=== PATIENT | female | born 1995 | race Caucasian/White ===

== ENCOUNTER → 2017-07-03 10:04 | Outpatient (CLI) | payer BC, SELFPAY ==
--- NOTE | 2017-07-03 13:09 | XR_ITS ---
XR shoulder LT min 2V HISTORY: ITS.REASON: pain ORDERING PHYSICIAN: Maria T Cardoso PATIENT AGE: 21 years COMPARISON: FINDINGS: No fracture or dislocation. No lytic or blastic change. There is normal mineralization. The joint spaces are well-preserved. No significant degenerative/arthritic changes. No erosive changes evident. IMPRESSION: Negative, no acute finding
[2017-07-03 14:20] LABS: Basophils % 0.4 % (0.1-2.0); Eosinophils # 0.4 K/mm3 (0.0-0.4); Hematocrit 50.1 % (37.0-47.0); Hemoglobin 16.8 g/dL (12.2-16.2); Lymphocytes # 1.6 K/mm3 (0.7-4.5); Lymphocytes % 19.5 K/mm3 (10-50); Mean Corpuscular HGB Conc 33.5 g/dL (31.8-35.4); Mean Corpuscular Hemoglobin 28.8 pg (27.0-31.2); Mean Platelet Volume 9.5 fl (7.4-10.4); Monocytes # 0.3 K/mm3 (0.1-1.0); Monocytes % 3.7 % (1.7-9.3); Neutrophils # 5.9 K/mm3 (1.8-7.8); Neutrophils % 71.4 % (37.0-80.0); Platelet Count 199 K/mm3 (142-424); Red Blood Count 5.82 M/mm3 (4.20-5.40); Red Cell Distribution Width 13.6 % (11.5-17.5); White Blood Count 8.3 K/mm3 (4.5-13.0)
[2017-07-03 14:21] LABS: Alanine Aminotransferase 20 U/L (12-78); Albumin Level 4.4 gm/dL (3.4-5.0); Albumin/Globulin Ratio 1.4 (1.1-1.8); Alkaline Phosphatase 73 U/L (46-116); Aspartate Amino Transferase 14 U/L (15-37); Bilirubin,Total 0.7 mg/dL (0.2-1.0); Blood Urea Nitrogen 9 mg/dL (7-18); Calcium 9.6 mg/dL (8.5-10.1); Carbon Dioxide 27 mmol/L (21.0-32.0); Chloride 103 mmol/L (98-107); Chol/HDL Ratio 3.5 (1-3.5); Cholesterol 175 mg/dL (140-200); Creatinine,Serum 0.67 mg/dL (0.55-1.02); Estimated Glomerular Filt Rate 113 ml/min (>60); Free T4 (Free Thyroxine) 1.15 ng/dl (0.78-1.34); GFR (African American) 137 ML/MIN (>60); Globulin 3.1 gm/dl (1.3-3.2); Glucose 94 mg/dL (74-106); HDL Cholesterol 50 mg/dL (29-89); LDL Cholesterol 102 mg/dL (0-130); Sodium 141 mmol/L (136-145); Total Protein,Serum 7.5 gm/dL (6.4-8.2); Triglycerides 115 mg/dL (30-200); VLDL Cholesterol 23 mg/dL (0-40)
[2017-07-03 15:06] LABS: Hemoglobin A1C 4.4 % (0.0-7.0)
[2017-07-05 06:28] LABS: Vitamin D 25 Hydroxy 23.9 ng/mL (30.0-100.0)
== END ==
PROVIDERS: PCP Nurse Practitioner Family; Visit Provider Nurse Practitioner Family
DX: Z85.43 Personal history of malignant neoplasm of ovary (principal); R53.83 Other fatigue; M25.512 Pain in left shoulder
CPT/HCPCS: 73030; 80053; 80061; 82652; 83036; 84439; 84443; 85025

== ENCOUNTER → 2017-07-14 14:44 | Outpatient (CLI) | payer BC, SELFPAY ==
--- NOTE | 2017-07-14 14:47 | US_ITS ---
US breast RT complete INDICATION: Palpable abnormality right breast ORDERING PHYSICIAN: Maria T Cardoso PATIENT AGE: 21 years COMPARISON: None TECHNIQUE: Standard breast and axillary images FINDINGS: There is a 20 by 16 x 9 mm area of heterogeneous echogenicity with enhanced through transmission of sound involving the 9:00 region of the right breast. Margins are well-circumscribed without evidence of spiculation or abnormal vascularity. This is likely related to fibroadenoma. No other significant anomalies are evident. IMPRESSION: Well-circumscribed 2 x 1.6 x 0.9 cm nodule in the 9:00 region right breast probably related to fibroadenoma. BI-RADS Category: 3 Benign Finding Short Term Follow-up RECOMMENDED FOLLOW-UP: 6M - 6 MONTH FOLLOW-UP (A letter has been sent to the patient regarding results of the study.)
== END ==
PROVIDERS: Family Provider Family Medicine; PCP Nurse Practitioner Family; Visit Provider Nurse Practitioner Family
DX: N60.09 Solitary cyst of unspecified breast (principal)
CPT/HCPCS: 76641

== ENCOUNTER → 2017-08-07 10:42 | Outpatient (CLI) | payer BC, SELFPAY ==
--- NOTE | 2017-08-07 10:46 | XR_ITS ---
XR chest 2V HISTORY: ITS.REASON: cough ORDERING PHYSICIAN: Maria T Cardoso PATIENT AGE: 21 years COMPARISON: None FINDINGS: The cardiomediastinal silhouette and pulmonary vascularity are within normal limits. The lungs are clear without infiltrates, suspicious nodules, or pleural effusions. No acute bony abnormalities. IMPRESSION: Negative chest, no acute finding
== END ==
PROVIDERS: PCP Nurse Practitioner Family; Visit Provider Nurse Practitioner Family
DX: R05 Cough (principal)
CPT/HCPCS: 71046

== ENCOUNTER → 2017-09-09 10:19 | Outpatient (POV) | payer BC, SELFPAY | PROVIDERS: Visit Provider Pediatrics | DX: Z00.00 Encounter for general adult medical examination without abnormal findings (principal) ==

== ENCOUNTER 2017-09-10 13:00 | Outpatient (RCR) | payer BC, SELFPAY ==
--- NOTE | 2017-08-05 11:03 | HMH.OTOPEV ---
OT Inpatient Evaluation Rehab OT Outpatient Eval Start: 08/05/17 10:42 Freq: Status: Active Protocol: Document 08/05/17 10:43 RMARSHALL (Rec: 08/05/17 11:02 [id number] Electronically Signed By Héctor Burger OT 08/05/17 10:43 Outpatient Therapy Subjective History Subjective History Pt is a 21 year old female who is seen today for initial eval of the left shoulder. Pt reports in February, she was skateboarding when she fell off and landed on left shoulder. Pt had pain and decreased function in left shoulder immediately after the fall. Pt fell again in march landing on her left shoulder. Pt explains her pain has not improved and has continued to increase. Pt does demonstrate with slight decreased AROM and strength at left shoulder. Pt will continue to be seen in order to address these deficits. Chief Complaint Pain Symptom Type Ache Throb Sharp Dull Stabbing Burning Tingling Shooting Symptoms Relieved By Nothing Symptoms Aggravated By Physical Activity Lifting Prior Functional Limitations None Current Functional Limitations Reaching Lifting Housework Dressing Driving Sleeping Recreation Activity Symptom Description Intermittent Activity Dependent Level of pain today (0-10) 4 Pain scale - at its best (0-10) 1 Pain scale - at its worst (0-10) 10 Shoulder/Elbow Eval Shoulder Objective Measurements Shoulder ROM Right Shoulder Abduction Active Range of 162 degrees Motion (degrees) Shoulder Flexion Active Range of Motion 160 degrees (degrees) Query Text: Shoulder External Rotation Active Range 90 degrees of Motion (degrees) Shoulder Internal Rotation Active Range 85 degrees of Motion (degre
== END 2017-09-10 13:01 | disposition home or self-care (01) ==
LOC: OT 13:00
PROVIDERS: Family Provider Family Medicine; PCP Nurse Practitioner Family; Visit Provider Nurse Practitioner Family
DX: M25.512 Pain in left shoulder (principal)
CPT/HCPCS: 97014; 97033; 97110; 97166; G0283

== ENCOUNTER → 2017-09-23 12:37 | Outpatient (POV) | payer BC, SELFPAY | PROVIDERS: Visit Provider Pediatrics | DX: Z00.00 Encounter for general adult medical examination without abnormal findings (principal) ==

== ENCOUNTER → 2017-10-28 13:48 | Outpatient (POV) | payer BC, SELFPAY | PROVIDERS: Family Provider Family Medicine; Visit Provider Pediatrics | DX: Z00.00 Encounter for general adult medical examination without abnormal findings (principal) ==

== ENCOUNTER → 2017-10-28 13:48 | Outpatient (POV) | payer BC, SELFPAY | PROVIDERS: Family Provider Family Medicine | DX: Z00.00 Encounter for general adult medical examination without abnormal findings (principal) ==

== ENCOUNTER → 2017-11-11 11:41 | Outpatient (POV) | payer BC, SELFPAY | PROVIDERS: Family Provider Family Medicine; Visit Provider Pediatrics | DX: Z00.00 Encounter for general adult medical examination without abnormal findings (principal) ==

== ENCOUNTER → 2017-11-11 11:41 | Outpatient (POV) | payer BC, SELFPAY | DX: Z00.00 Encounter for general adult medical examination without abnormal findings (principal) ==

== ENCOUNTER → 2017-11-25 11:26 | Outpatient (POV) | payer BC, SELFPAY | PROVIDERS: Family Provider Family Medicine | DX: Z00.00 Encounter for general adult medical examination without abnormal findings (principal) ==

== ENCOUNTER → 2017-12-09 12:40 | Outpatient (POV) | payer BC, SELFPAY | PROVIDERS: Visit Provider Pediatrics | DX: Z00.00 Encounter for general adult medical examination without abnormal findings (principal) ==

== ENCOUNTER → 2017-12-30 11:22 | Outpatient (POV) | payer BC, SELFPAY | PROVIDERS: Visit Provider Pediatrics | DX: Z00.00 Encounter for general adult medical examination without abnormal findings (principal) ==

== ENCOUNTER → 2018-01-13 13:11 | Outpatient (POV) | payer BC, SELFPAY | PROVIDERS: Visit Provider Pediatrics | DX: Z00.00 Encounter for general adult medical examination without abnormal findings (principal) ==

== ENCOUNTER → 2018-02-10 12:36 | Outpatient (POV) | payer BC, SELFPAY | PROVIDERS: Visit Provider Pediatrics | DX: Z00.00 Encounter for general adult medical examination without abnormal findings (principal) ==

== ENCOUNTER → 2018-02-10 13:56 | Outpatient (POV) | payer BC, SELFPAY | PROVIDERS: Visit Provider Internal Medicine | DX: Z00.00 Encounter for general adult medical examination without abnormal findings (principal) ==

== ENCOUNTER → 2018-03-10 10:44 | Outpatient (POV) | payer BC, SELFPAY | PROVIDERS: Visit Provider Pediatrics | DX: Z00.00 Encounter for general adult medical examination without abnormal findings (principal) ==

== ENCOUNTER → 2018-04-14 13:04 | Outpatient (POV) | payer BC, SELFPAY | PROVIDERS: Visit Provider Pediatrics | DX: Z00.00 Encounter for general adult medical examination without abnormal findings (principal) ==

== ENCOUNTER → 2018-04-28 11:19 | Outpatient (POV) | payer BC, SELFPAY | PROVIDERS: Visit Provider Pediatrics | DX: Z00.00 Encounter for general adult medical examination without abnormal findings (principal) ==

== ENCOUNTER → 2018-05-12 11:45 | Outpatient (POV) | payer BC, SELFPAY | PROVIDERS: Visit Provider Pediatrics | DX: Z00.00 Encounter for general adult medical examination without abnormal findings (principal) ==

== ENCOUNTER → 2018-06-09 11:16 | Outpatient (POV) | payer BC, SELFPAY | PROVIDERS: Visit Provider Pediatrics | DX: Z00.00 Encounter for general adult medical examination without abnormal findings (principal) ==

== ENCOUNTER → 2018-06-09 11:17 | Outpatient (POV) | payer BC, SELFPAY | PROVIDERS: Visit Provider Pediatrics | DX: Z00.00 Encounter for general adult medical examination without abnormal findings (principal) ==

== ENCOUNTER → 2018-06-23 11:41 | Outpatient (POV) | payer BC, SELFPAY | PROVIDERS: Visit Provider Pediatrics | DX: Z00.00 Encounter for general adult medical examination without abnormal findings (principal) ==

== ENCOUNTER → 2018-07-28 11:16 | Outpatient (POV) | payer BC, SELFPAY | PROVIDERS: Visit Provider Pediatrics | DX: Z00.00 Encounter for general adult medical examination without abnormal findings (principal) ==

== ENCOUNTER → 2018-08-11 11:18 | Outpatient (POV) | payer BC, SELFPAY | PROVIDERS: Visit Provider Pediatrics | DX: Z00.00 Encounter for general adult medical examination without abnormal findings (principal) ==

== ENCOUNTER → 2018-09-01 11:55 | Outpatient (CLI) | payer BC, SELFPAY ==
--- NOTE | 2018-09-01 12:02 | XR_ITS ---
XR foot wt bearing RT 3V HISTORY: ITS.REASON: Right foot pain ORDERING PHYSICIAN: Viridiana Ayala APRN PATIENT AGE: 22 years COMPARISON: None FINDINGS: No fracture or dislocation. No lytic or blastic change. There is normal mineralization.. The joint spaces are well-preserved. No significant degenerative/arthritic changes. No erosive changes evident. IMPRESSION: Negative, no acute finding
== END ==
PROVIDERS: PCP Nurse Practitioner Family; Visit Provider Nurse Practitioner Family
DX: M79.671 Pain in right foot (principal)
CPT/HCPCS: 73630

== ENCOUNTER → 2018-12-16 15:50 | Outpatient (CLI) | payer OTHER, BC, SELFPAY ==
--- NOTE | 2018-12-16 15:55 | XR_ITS ---
PROCEDURE: XR SHOULDER LT MIN 2V CLINICAL INDICATION: pain Left shoulder pain following injury COMPARISON: SHOULDCMLT XR shoulder LT min 2V from 07/03/2017 FINDINGS: Normal alignment. No fracture or dislocation. No lytic or blastic change or significant arthritic change. IMPRESSION: Negative left shoulder Dictated by: Robert Iyer MD 12/16/2018 17:15 Electronically signed by Robert Iyer MD in [place] 12/16/2018 17:17
== END ==
PROVIDERS: PCP Nurse Practitioner Family; Visit Provider Nurse Practitioner Family
DX: M25.512 Pain in left shoulder (principal); S49.90XA Unspecified injury of shoulder and upper arm, unspecified arm, initial encounter
CPT/HCPCS: 73030

== ENCOUNTER → 2019-02-05 11:12 | Outpatient (CLI) | payer BC, SELFPAY ==
[2019-02-05 14:30] LABS: Blood Urea Nitrogen 14 mg/dL (7-18); Calcium 8.2 mg/dL (8.5-10.1); Carbon Dioxide 27 mmol/L (21.0-32.0); Chloride 105 mmol/L (98-107); Creatinine,Serum 0.59 mg/dL (0.55-1.02); Estimated Glomerular Filt Rate 129 ml/min (>60); GFR (African American) 156 ML/MIN (>60); Glucose 77 mg/dL (74-106); Sodium 143 mmol/L (136-145)
== END ==
PROVIDERS: Visit Provider Nurse Practitioner Family
DX: E87.6 Hypokalemia (principal)
CPT/HCPCS: 36415; 80048

== ENCOUNTER 2019-10-31 13:01 | Emergency (ER) | payer BC, OTHER, SELFPAY ==
[2019-10-31 13:23] VITALS: BP 133/79; PULSE 101; RESP 19; TEMP 36.6; O2SAT 98; BMI 24.9
--- NOTE | 2019-10-31 13:37 | HMH.EDUTC ---
[facility] [place] Clinical Impression: Strep throat Disposition: Home, Self-Care Condition on Discharge: Good Instructions: Strep Throat, DI for Strep Throat Additional Instructions: Drink plenty of fluids. Take tylenol or ibuprofen for pain or fever. Take the medications as directed. Follow up with your regular doctor. GO TO THE ER FOR ANY WORSENING SYMPTOMS Throw your toothbrush away and get a new one. Prescriptions: Ondansetron [Zofran 4mg ODT] 4 mg PO Q8HP PRN #9 tab.rapdis PRN Reason: Nausea Transmission Status: Received by [facility] Amoxicillin/Potassium Clav [Augmentin 875-125 Tablet] 1 tab PO Q12H 10 Days #20 tab Transmission Status: Received by [facility] predniSONE [Deltasone 10mg tablet] 10 mg PO BID 3 Days #6 tab Transmission Status: Received by [facility] Referrals: Lenka Dominguez PA [Primary Care Provider] - Forms: Work/School Release Time of Disposition: 13:38 Medical Decision Making - Medical Records Medical records reviewed: No: I reviewed the patient's medical records. - Steve Inquiry Pt receiving controlled substance: No Vital Signs: 10/31/19 13:23 10/31/19 13:45 Temperature 97.8 F 97.8 F Temperature Source Oral Pulse Rate 101 H Pulse Rate [Right Brachial] 101 H Respiratory Rate 19 19 Blood Pressure 133/79 Blood Pressure [Right Arm] 133/79 Blood Pressure Mean [Right Arm] 97 Blood Pressure Source [Right Arm] Automatic Cuff Blood Pressure Position [Right Arm] Sitting 02 Sat by Pulse Oximetry 98 Oxygen Delivery Method Room Air - Lab Data Lab results reviewed: Yes: I reviewed the patient's lab results. Lab Results 10/31/19 13:16: Strep Scn Rapid [facility] Positive A [facility] [place] HPI - General Stated complaint: possible sinus Time Seen by Provider: 10/31/19 13:30 Mode of Arrival: Ambulatory Source of Information: Patient Limitations: No Limitations Description of Symptoms (Recalled from Triage Doc. by RN): PATIENT C/O SORE THROAT AND SINUS PRESSURE SINCE LAST NIGHT HEENT Symptoms (Recalled from RN notes): Yes Resp Symptoms (Recalled from RN notes): No Skin Symptoms (Recalled from RN notes): No MS Symptoms (Recalled from RN notes): No Functional Status (Recalled from RN notes): WNL - History of Present Illness Provider Complaint: Her symptoms began yesterday. - Related Data Home Medications Medication Instructions Recorded Confirmed Prazosin HCl [Minipress] 4 mg PO QHS 10/31/19 10/31/19 Previous Rx's Medication Instructions Recorded Amoxicillin/Potassium Clav 1 tab PO Q12H 10 Days #20 tab 10/31/19 [Augmentin 875-125 Tablet] Ondansetron [Zofran 4mg ODT] 4 mg PO Q8HP PRN #9 tab.rapdis 10/31/19 predniSONE [Deltasone 10mg tablet] 10 mg PO BID 3 Days #6 tab 10/31/19 Allergies Allergy/AdvReac Type Severity Reaction Status Date / Time Fish Containing Products Allergy Intermediate upset Verified 08/11/19 09:13 stomach Milk Containing Products Allergy Mild Verified 08/11/19 09:13 peanut Allergy Mild Verified 08/11/19 09:13 cinnamon Allergy throat Verified 08/11/19 09:13 swells - Worker's Comp Is this a Worker's Comp case?: No [facility] History - Hepatitis A Screen Drug use history?: No High risk sexual behaviors?: No History of sexually transmitted infection?: No Currently employed?: No Childcare worker?: No Do you have indoor plumbing?: Yes Do you have electricity?: Yes Attestation statement:: This patient has been screened for Hepatitis A risk factors. I have reviewed the patient's past medical history: Yes Medical History: Reports:: Anxiety, Asthma, Cancer, Depression, Seizures Denies:: Diabetes Mellitus Type 1, Hypertension Other Medical History: Reports: Other Comment: Ovarian cancer, age of 16, right ovary removed Laterality Cases: Bilateral: Other Other Surgeries: Yes: Hysterectomy-Partial, Other Amputation: No Fractures: No Comment: right ovary r
[2019-10-31 13:38] LABS: UTC Strep Screen (Rapid) Positive (Negative)
[2019-10-31 13:45] VITALS: BP 133/79; PULSE 101; RESP 19; TEMP 36.6; O2SAT 98
== END 2019-10-31 13:47 | disposition home or self-care (01) ==
PROVIDERS: Emergency Provider Nurse Practitioner Family; PCP Physician Assistant
DX: J02.0 Streptococcal pharyngitis (principal); J45.909 Unspecified asthma, uncomplicated; F41.8 Other specified anxiety disorders; F17.210 Nicotine dependence, cigarettes, uncomplicated; Z79.899 Other long term (current) drug therapy; Z85.43 Personal history of malignant neoplasm of ovary
CPT/HCPCS: 87880; 99201

== ENCOUNTER → 2019-12-15 10:43 | Outpatient (CLI) | payer BC, OTHER, SELFPAY ==
[2019-12-15 11:18] LABS: Basophils % 0.7 % (0.1-2.0); Eosinophils # 0.2 K/mm3 (0.0-0.4); Eosinophils % 2.4 % (0.1-12.0); Hematocrit 50.6 % (37.0-47.0); Lymphocytes % 30.2 % (10-50); Mean Corpuscular HGB Conc 33.7 g/dL (31.8-35.4); Mean Corpuscular Hemoglobin 28.9 pg (27.0-31.2); Mean Corpuscular Volume 85.8 fl (81-99); Mean Platelet Volume 8.1 fl (7.4-10.4); Monocytes # 0.4 K/mm3 (0.1-1.0); Monocytes % 6.5 % (1.7-9.3); Neutrophils % 60.3 % (37.0-80.0); Platelet Count 202 K/mm3 (142-424); Red Blood Count 5.89 M/mm3 (4.20-5.40); Red Cell Distribution Width 13.8 % (11.5-17.5); White Blood Count 6.7 K/mm3 (4.8-10.8)
[2019-12-15 11:43] LABS: Alanine Aminotransferase 13 U/L (12-78); Albumin Level 4.4 g/dl (3.5-5.0); Albumin/Globulin Ratio 1.8 (1.1-1.8); Alkaline Phosphatase 54 U/L (38-126); Anion Gap 12.6 mEq/L (5-15); Aspartate Amino Transferase 18 U/L (14-36); Bilirubin,Total 0.7 mg/dl (0.2-1.3); Blood Urea Nitrogen 16 mg/dl (7-17); Calcium 9.5 mg/dl (8.4-10.2); Carbon Dioxide 27 mmol/L (22.0-30.0); Chloride 104 mmol/L (98-107); Chol/HDL Ratio 2.7 (1-3.5); Cholesterol 161 mg/dl (140-200); Estimated Glomerular Filt Rate 125 ml/min (>60); GFR (African American) 151 ML/MIN (>60); Globulin 2.5 g/dL (1.3-3.2); Glucose 93 mg/dl (74-100); HDL Cholesterol 59 mg/dl (40-60); Potassium 4.6 mmoL/L (3.5-5.1); Sodium 139 mmol/L (136-145); Total Protein,Serum 6.9 g/dl (6.3-8.2); Triglycerides 97 mg/dl (30-150); VLDL Cholesterol 19 mg/dL (0-40)
[2019-12-15 11:54] LABS: Direct LDL Cholesterol 87.79 mg/dL (100-129)
[2019-12-15 12:14] LABS: Thyroid Stimulating Hormone 1.02 uIU/mL (0.465-4.68)
== END ==
PROVIDERS: Visit Provider Nurse Practitioner Psychiatric/Mental Health
DX: Z00.00 Encounter for general adult medical examination without abnormal findings (principal)
CPT/HCPCS: 36415; 80053; 80061; 84443; 85025

== ENCOUNTER → 2020-04-27 09:14 | Outpatient (CLI) | payer BC, OTHER, SELFPAY ==
--- NOTE | 2020-04-27 09:14 | US_ITS ---
PROCEDURE: US ABDOMEN LIMITED CLINICAL INDICATION: RUQ pain, vomiting COMPARISON: No exams were available for comparison FINDINGS: PANCREAS: Unremarkable. No obvious mass or abnormal fluid collection. No ductal dilatation LIVER: No focal liver lesions demonstrated. Homogeneous echogenicity. No intrahepatic biliary ductal dilatation evident. There is appropriate direction of blood flow within a non dilated portal vein RIGHT KIDNEY: Unremarkable. Normal size and echogenicity. No hydronephrosis GALLBLADDER: No gallstones, gallbladder wall thickening, pericholecystic fluid, or biliary dilatation. IMPRESSION: Unremarkable limited abdominal ultrasound as detailed above disc Dictated by: Robert Iyer MD 04/27/2020 11:10 Robert Iyer MD in [place] 04/27/2020 11:10
== END ==
PROVIDERS: PCP Physician Assistant; Visit Provider Physician Assistant
DX: R11.10 Vomiting, unspecified (principal)
CPT/HCPCS: 76705

== ENCOUNTER 2020-05-17 11:53 | Emergency (ER) | payer BC, OTHER, SELFPAY ==
[2020-05-17 12:00] VITALS: BP 137/85; PULSE 97; RESP 21; TEMP 37; O2SAT 99; BMI 29.0
--- NOTE | 2020-05-17 12:34 | HMH.EDUTC ---
[facility] [place] Clinical Impression: URI (upper respiratory infection) Qualifiers: URI type: unspecified URI Qualified Code(s): J06.9 - Acute upper respiratory infection, unspecified Disposition: Home, Self-Care Condition on Discharge: Good Instructions: Sore Throat, DI for Nasal Congestion, Guaifenesin Additional Instructions: *Monitor Temp, Over the counter Motrin or Tylenol as directed/as needed Tylenol every 4 hours and Motrin every 6 hours (as long as your family doctor has told you that you can take it) for fever or pain. and straight to ER if unable to lower temp less than 101.0 after medication given *Warm salt water gargles may help to soothe the throat *Throat Lozenges *Warm fluids like tea with honey may help to soothe the throat *Sleep elevated *Humidifier/Vaporizer Follow up IMMEDIATELY for new or worsening symptoms or no Noticeable improvement over the next 48-72 hours. 911 for difficulty breathing or swallowing Referrals: Lenka Dominguez PA [Primary Care Provider] - As needed Time of Disposition: 13:22 Medical Decision Making - Steve Inquiry Pt receiving controlled substance: No Steve was queried for this patient: No Vital Signs: 05/17/20 12:00 Temperature 98.6 F Temperature Source Oral Pulse Rate [Right Radial] 97 H Respiratory Rate 21 Blood Pressure [Right Arm] 137/85 Blood Pressure Mean [Right Arm] 102 Blood Pressure Source [Right Arm] Automatic Cuff 02 Sat by Pulse Oximetry 99 Oxygen Delivery Method Room Air Orders (Tests/Meds): ED MEDICATIONS Discontinued Medications Generic Name Dose Route Start Last Admin Trade Name Bryson PRN Reason Stop Dose Admin Ceftriaxone Sodium 1 gm 05/17/20 12:37 05/17/20 12:56 Ceftriaxone 1gm Vial IM 05/17/20 12:38 1 gm ONCE ONE Administration Protocol Lidocaine HCl 0 ml 05/17/20 12:37 05/17/20 12:56 Lidocaine 1% 5ml Pf Vial IM 05/17/20 12:38 5 ml ONCE ONE Administration Methylprednisolone Sodium Succinate 125 mg 05/17/20 12:37 05/17/20 12:57 Methylprednisolone Sod Succ 125mg Vial IM 05/17/20 12:38 125 mg ONCE ONE Administration [facility] [place] - General Stated complaint: possible upper respiratory inf Time Seen by Provider: 05/17/20 12:35 Mode of Arrival: Family Vehicle Source of Information: Patient, Significant Other Limitations: No Limitations Description of Symptoms (Recalled from Triage Doc. by RN): Pt c/o head and chest cold with cough. Pt reports she has had a high fever and sneezing fo 2 days. HEENT Symptoms (Recalled from RN notes): Yes Resp Symptoms (Recalled from RN notes): Yes Skin Symptoms (Recalled from RN notes): No MS Symptoms (Recalled from RN notes): No Functional Status (Recalled from RN notes): na - History of Present Illness Provider Complaint: Patient state that she has been having sinus issues on and off for over a month States that she tried over the counter medication but it did not help much States that for over a week she has been getting worse and feels like it is trying to move into her chest area States that she is starting to get pressure behind her eyes and wanted to get checked - Related Data Home Medications Medication Instructions Recorded Confirmed Doxepin HCl [Sinequin 50mg capsule] 50 mg PO .COMPLEX 05/17/20 05/17/20 Allergies Allergy/AdvReac Type Severity Reaction Status Date / Time Fish Containing Products Allergy Intermediate upset Verified 04/23/20 10:03 stomach Milk Containing Products Allergy Mild Verified 04/23/20 10:03 peanut Allergy Mild Verified 04/23/20 10:03 cinnamon Allergy throat Verified 04/23/20 10:03 swells - Worker's Comp Is this a Worker's Comp case?: No [facility] History - Hepatitis A Screen Drug use history?: No High risk sexual behaviors?: No History of sexually transmitted infection?: No Currently employed?: No Childcare worker?: No Do you have indoor plumbing?: Yes Do you have electricity?: Yes A
[2020-05-17 13:10] VITALS: BP 135/85; PULSE 92; RESP 20; TEMP 37
== END 2020-05-17 13:15 | disposition home or self-care (01) ==
PROVIDERS: Emergency Provider Nurse Practitioner; PCP Physician Assistant
DX: J06.9 Acute upper respiratory infection, unspecified (principal); F41.8 Other specified anxiety disorders; I10 Essential (primary) hypertension; F17.210 Nicotine dependence, cigarettes, uncomplicated
CPT/HCPCS: 96372; 99202; G0463

== ENCOUNTER 2020-05-19 09:07 | Emergency (ER) | payer BC, OTHER, SELFPAY ==
[2020-05-19 09:17] VITALS: BP 127/84; PULSE 92; RESP 20; TEMP 36.9; O2SAT 98; BMI 29.9
--- NOTE | 2020-05-19 09:54 | HMH.EDUTC ---
[facility] [place]ression: Acute bronchitis Qualifiers: Bronchitis organism: rhinovirus Qualified Code(s): J20.6 - Acute bronchitis due to rhinovirus Disposition: Home, Self-Care Condition on Discharge: Good Instructions: Acute Bronchitis Additional Instructions: Start antibiotic today. Be sure to complete entire prescription even if feeling better Tylenol and ibuprofen as needed for pain or fever Humidifier/vaporizer/hot steamy shower Follow-up with primary care tomorrow. Follow-up immediately in the ER of the [facility] for new or worsening symptoms or no noticeable improvement over the next 48-72 hours. Stop smoking Inhaler every 4-6 hours as needed. Should help open airways improved cough, wheezing, shortness of breath Tessalon Perles will not cause drowsiness to use at bedtime to help stop cough so that she can get some sleep Start steroids today. Helps with inflammation therefore coughing and wheezing. Follow directions on package. follow up with Dr morales on thursday Prescriptions: predniSONE [Prednisone 20mg Tab] 20 mg PO BID #10 tab [facility]: [facility] Benzonatate [Tessalon Perle 100mg Cap*] 100 mg PO BID PRN #14 cap PRN Reason: Cough Transmission Status[facility] Azithromycin [Zithromax 250mg tab] 250 mg PO DIRECTED #6 tab Transmission [facility]: [facility] Referrals: Lenka Dominguez PA [Primary Care Provider] - Time of Disposition: 11:23 Medical Decision Making - Steve Inquiry Pt receiving controlled substance: No Vital Signs: 05/19/20 09:17 Temperature 98.4 F Temperature Source Oral Pulse Rate [Right] 92 H Respiratory Rate 20 Blood Pressure [Right Arm] 127/84 Blood Pressure Mean [Right Arm] 98 Blood Pressure Source [Right Arm] Automatic Cuff Blood Pressure Position [Right Arm] Sitting 02 Sat by Pulse Oximetry 98 Oxygen Delivery Method Room Air - Lab Data Lab Results 05/19/20 10:20: WBC 10.9 H, RBC 5.46 H, Hgb 15.5, Hct 44.8, MCV 82.1, MCH 28.4, MCHC 34.5, RDW 13.6, Plt Count 201, MPV 8.1, Neut % (Auto) 61.6, Lymph % (Auto) 30.2, [place] % (Auto) 4.2, Eos % (Auto) 3.4, Baso % (Auto) 0.7, Neut # (Auto) 6.7, Lymph # (Auto) 3.3, [place] # (Auto) 0.5, Eos # (Auto) 0.4, Baso # (Auto) 0.1 05/19/20 10:20: PT 10.4, INR 0.87 L 05/19/20 10:20: Sodium 141, Potassium 3.8, Chloride 106, Carbon Dioxide 27, Anion Gap 11.8, BUN 21 H, Creatinine 0.60, Estimated Creat Clear 202, Estimated GFR 125, Est GFR ( Amer) 151, Glucose 97, Calcium 9.3, Total Bilirubin 0.4, Direct Bilirubin 0.1, Conjugated Bilirubin 0.0, Indirect Bilirubin 0.3, Unconjugated Bilirubin 0.4, AST 22, ALT 17, Alkaline Phosphatase 56, Total Protein 7.4, Albumin 4.6, Globulin 2.8, Albumin/Globulin Ratio 1.6, Triglycerides 127, Cholesterol 171, LDL Cholesterol Direct 79.45 L, VLDL Cholesterol 25, HDL Cholesterol 53, Cholesterol/HDL Ratio 3.2 Result diagrams: 05/19/20 10:20 05/19/20 10:20 Orders (Tests/Meds): ED MEDICATIONS Generic Name Dose Route Start Last Admin Trade Name Freq PRN Reason Stop Dose Admin Albuterol Sulfate 2 puffs 05/19/20 10:13 05/19/20 10:14 Albuterol-Hfa 90mcg/Puff Inhaler 8gm 06/18/20 10:12 2 puffs Q4HP PRN Administration Shortness Of Breath Discontinued Medications Generic Name Dose Route Start Last Admin Trade Name Freq PRN Reason Stop Dose Admin Acetaminophen 1,000 mg 05/19/20 10:33 05/19/20 10:37 Acetaminophen 500mg Tab PO 05/19/20 10:34 1,000 mg ONCE ONE Administration Albuterol Sulfate 2.5 mg 05/19/20 09:58 Albuterol 0.083% 2.5 Mg/3 Ml Neb IH 05/19/20 09:59 ONCE ONE Miscellaneous 1 unit 05/19/20 10:13 05/19/20 10:14 Aerochamber/Optihaler MC 05/19/20 10:14 1 unit ONCE ONE Administration ORDERS Category Date Time Status XR chest 2V Stat Exams 05/19/20 10:01 Taken Full Resp Panel w/COVID ([facility]) Routine Lab 05/19/20 10:00 Received [facility]
--- NOTE | 2020-05-19 10:01 | XR_ITS ---
PROCEDURE: XR CHEST 2V CLINICAL HISTORY: COUGH COMPARISON: DX CXR2V XR chest 2V from 08/07/2017 FINDINGS: The cardiomediastinal silhouette and pulmonary vascularity are within normal limits. The lungs are clear without infiltrates, suspicious nodules, or pleural effusions. No acute bony abnormalities. There are bilateral nipple rings. IMPRESSION: No acute findings. Dictated by: Dr. Kamran Khan MD 05/19/2020 12:18 Dr. Kamran Khan MD in [place] 05/19/2020 12:18
[2020-05-19 10:05] LABS: Adenovirus,PCR Not Detected (NotDetected); Bordetella Pertussis Not Detected (NotDetected); Chlamydophila Pneumoniae, PCR Not Detected (NotDetected); Coronavirus 19, PCR Not Detected (NotDetected); Coronavirus 229E Not Detected (NotDetected); Coronavirus NL63 Not Detected (NotDetected); Coronavirus OC43 Not Detected (NotDetected); Coronovirus HKU1,PCR Not Detected (NotDetected); Human Metapneumovirus Not Detected (NotDetected); Influenza A, PCR Not Detected (NotDetected); Influenza AH1, 2009 Not Detected (NotDetected); Influenza AH1, PCR Not Detected (NotDetected); Influenza AH3,PCR Not Detected (NotDetected); Influenza B, PCR Not Detected (NotDetected); Mycoplasma Pneumoniae, PCR Not Detected (NotDetected); Parainfluenza 1, PCR Not Detected (NotDetected); Parainfluenza 2, PCR Not Detected (NotDetected); Parainfluenza 3, PCR Not Detected (NotDetected); Parainfluenza 4, PCR Not Detected (NotDetected); Respiratory Syncytial Virus Not Detected (NotDetected)
[2020-05-19 10:33] LABS: Basophils # 0.1 K/mm3 (0-0.2); Basophils % 0.7 % (0.1-2.0); Eosinophils # 0.4 K/mm3 (0.0-0.4); Eosinophils % 3.4 % (0.1-12.0); Hematocrit 44.8 % (37.0-47.0); Hemoglobin 15.5 g/dL (12.2-16.2); Lymphocytes # 3.3 K/mm3 (0.7-4.5); Lymphocytes % 30.2 % (10-50); Mean Corpuscular HGB Conc 34.5 g/dL (31.8-35.4); Mean Corpuscular Hemoglobin 28.4 pg (27.0-31.2); Mean Corpuscular Volume 82.1 fl (81-99); Mean Platelet Volume 8.1 fl (7.4-10.4); Monocytes # 0.5 K/mm3 (0.1-1.0); Monocytes % 4.2 % (1.7-9.3); Neutrophils # 6.7 K/mm3 (1.8-7.8); Neutrophils % 61.6 % (37.0-80.0); Platelet Count 201 K/mm3 (142-424); Red Blood Count 5.46 M/mm3 (4.20-5.40); Red Cell Distribution Width 13.6 % (11.5-17.5); White Blood Count 10.9 K/mm3 (4.8-10.8)
[2020-05-19 10:37] LABS: Chloride 106 mmol/L (98-107)
[2020-05-19 10:38] LABS: Potassium 3.8 mmoL/L (3.5-5.1); Sodium 141 mmol/L (136-145)
[2020-05-19 10:40] LABS: Alanine Aminotransferase 17 U/L (12-78); Albumin Level 4.6 g/dl (3.5-5.0); Albumin/Globulin Ratio 1.6 (1.1-1.8); Alkaline Phosphatase 56 U/L (38-126); Anion Gap 11.8 mEq/L (5-15); Aspartate Amino Transferase 22 U/L (14-36); Bilirubin,Direct 0.1 mg/dl (0.0-0.4); Bilirubin,Indirect 0.3 mg/dL (0.0-0.9); Bilirubin,Total 0.4 mg/dl (0.2-1.3); Bilirubin,Unconjugated 0.4 mg/dL (0.0-1.1); Blood Urea Nitrogen 21 mg/dl (7-17); Calcium 9.3 mg/dl (8.4-10.2); Carbon Dioxide 27 mmol/L (22.0-30.0); Cholesterol 171 mg/dl (140-200); Creatinine Clearance Estimated 202 mL/min (50-200); Estimated Glomerular Filt Rate 125 ml/min (>60); GFR (African American) 151 ML/MIN (>60); Globulin 2.8 g/dL (1.3-3.2); Glucose 97 mg/dl (74-100); Total Protein,Serum 7.4 g/dl (6.3-8.2); Triglycerides 127 mg/dl (30-150); VLDL Cholesterol 25 mg/dL (0-40)
[2020-05-19 10:41] LABS: Chol/HDL Ratio 3.2 (1-3.5); HDL Cholesterol 53 mg/dl (40-60)
[2020-05-19 10:42] LABS: INR 0.87 (0.9-1.1); Prothrombin Time 10.4 seconds (10.1-12.5)
[2020-05-19 10:51] LABS: Direct LDL Cholesterol 79.45 mg/dL (100-129)
[2020-05-19 11:17] LABS: Rhinovirus/Enterovirus Detected (NotDetected)
[2020-05-19 11:19] VITALS: BP 139/75; PULSE 73; RESP 16; TEMP 36.6
== END 2020-05-19 11:24 | disposition home or self-care (01) ==
PROVIDERS: Emergency Provider Nurse Practitioner Family; PCP Physician Assistant
DX: J20.6 Acute bronchitis due to rhinovirus (principal); B34.8 Other viral infections of unspecified site; I10 Essential (primary) hypertension; F17.210 Nicotine dependence, cigarettes, uncomplicated; F41.8 Other specified anxiety disorders
CPT/HCPCS: 71046; 80053; 80061; 80076; 85025; 85610; 87581; 87633; 87798; 99202; G0463

== ENCOUNTER → 2020-07-02 11:23 | Outpatient (CLI) | payer BC, OTHER, SELFPAY ==
--- NOTE | 2020-07-02 11:48 | XR_ITS ---
PROCEDURE: XR KNEE RT 4V CLINICAL INDICATION: right knee pain and instability COMPARISON: No exams were available for comparison FINDINGS: No acute fractures or dislocations. Bone density is normal. The joint spaces are maintained. No suprapatellar joint effusion. Visualized soft tissues are unremarkable. IMPRESSION: No acute findings. Dictated by: Jaylyn Forbes 07/02/2020 14:15 Jaylyn Forbes in [place] 07/02/2020 14:15
--- NOTE | 2020-07-02 11:48 | XR_ITS ---
PROCEDURE: XR SCOLIOSIS SURVEY CLINICAL INDICATION: scoliosis COMPARISON: No exams were available for comparison FINDINGS: There is minor levoscoliosis of the lumbar spine. The Gillis angle measures 7 degrees. Paravertebral soft tissues are unremarkable. IMPRESSION: Levoscoliosis of the lumbar spine.. Dictated by: Jaylyn Forbes 07/02/2020 14:08 Jaylyn Forbes in [place] 07/02/2020 14:08
[2020-07-02 12:01] LABS: Basophils # 0.1 K/mm3 (0-0.2); Basophils % 0.8 % (0.1-2.0); Eosinophils # 0.2 K/mm3 (0.0-0.4); Eosinophils % 2.8 % (0.1-12.0); Hematocrit 47.4 % (37.0-47.0); Hemoglobin 16.1 g/dL (12.2-16.2); Lymphocytes # 2.3 K/mm3 (0.7-4.5); Lymphocytes % 41.8 % (10-50); Mean Corpuscular HGB Conc 33.9 g/dL (31.8-35.4); Mean Corpuscular Hemoglobin 28.3 pg (27.0-31.2); Mean Corpuscular Volume 83.3 fl (81-99); Mean Platelet Volume 8.6 fl (7.4-10.4); Monocytes # 0.2 K/mm3 (0.1-1.0); Monocytes % 4.3 % (1.7-9.3); Neutrophils # 2.8 K/mm3 (1.8-7.8); Neutrophils % 50.3 % (37.0-80.0); Platelet Count 177 K/mm3 (142-424); Red Blood Count 5.69 M/mm3 (4.20-5.40); Red Cell Distribution Width 13.6 % (11.5-17.5); White Blood Count 5.6 K/mm3 (4.8-10.8)
[2020-07-02 12:45] LABS: Chloride 105 mmol/L (98-107); Potassium 3.8 mmoL/L (3.5-5.1); Sodium 138 mmol/L (136-145)
[2020-07-02 12:48] LABS: Alanine Aminotransferase 17 U/L (12-78); Albumin Level 4.7 g/dl (3.5-5.0); Albumin/Globulin Ratio 1.9 (1.1-1.8); Alkaline Phosphatase 56 U/L (38-126); Anion Gap 12.8 mEq/L (5-15); Aspartate Amino Transferase 21 U/L (14-36); Bilirubin,Total 0.8 mg/dl (0.2-1.3); Blood Urea Nitrogen 15 mg/dl (7-17); Calcium 9.4 mg/dl (8.4-10.2); Carbon Dioxide 24 mmol/L (22.0-30.0); Cholesterol 184 mg/dl (140-200); Estimated Glomerular Filt Rate 125 ml/min (>60); GFR (African American) 151 ML/MIN (>60); Globulin 2.5 g/dL (1.3-3.2); Glucose 92 mg/dl (74-100); Total Protein,Serum 7.2 g/dl (6.3-8.2); Triglycerides 88 mg/dl (30-150); VLDL Cholesterol 18 mg/dL (0-40)
[2020-07-02 12:49] LABS: Chol/HDL Ratio 3.1 (1-3.5); HDL Cholesterol 59 mg/dl (40-60)
[2020-07-02 12:51] LABS: Erythrocyte Sedimentation Rate 6 mm/hr (0-20)
[2020-07-02 12:54] LABS: C-Reactive Protein 1.8 mg/L (0-4)
[2020-07-02 12:59] LABS: Direct LDL Cholesterol 94.59 mg/dL (100-129)
[2020-07-02 13:08] LABS: T4 (Thyroxine) 9.5 ug/dl (5.53-11.0)
[2020-07-02 13:19] LABS: Thyroid Stimulating Hormone 1.48 uIU/mL (0.465-4.68)
[2020-07-02 13:33] LABS: Free T4 (Free Thyroxine) 1.27 ng/dl (0.78-2.19)
[2020-07-03 09:22] LABS: Triiodothyronine (T3) Total 139 ng/dL (71-180)
[2020-07-03 11:39] LABS: RA Latex Turbid. <10.0 IU/mL (0.0-13.9); Thyroid Peroxidase Antibodies <9 IU/mL (0-34)
[2020-07-03 14:53] LABS: Anti-Centromere B Antibodies <0.2 AI (0.0-0.9); Anti-Jo-1 <0.2 AI (0.0-0.9); Anti-Smith Antibody 0.3 AI (0.0-0.9); Antichromatin Antibodies 0.2 AI (0.0-0.9); Antiscleroderma-70 Antibodies <0.2 AI (0.0-0.9); RNP Antibodies <0.2 AI (0.0-0.9); Sjogren's Anti-SS-A <0.2 AI (0.0-0.9); Sjogren's Anti-SS-B <0.2 AI (0.0-0.9)
[2020-07-03 20:31] LABS: Anti-DNA (DS) Ab Qn <1 IU/mL (0-9)
[2020-07-04 04:32] LABS: PTT-LA 40.2 sec (0.0-51.9)
[2020-07-04 10:34] LABS: Anti-Cyclic Citrullinated Pept 7 units (0-19)
[2020-07-04 10:35] LABS: Lupus Reflex Interpretation Comment: (.); Thyroid Stimulating Immunoglob <0.10 IU/L (0.00-0.55)
== END ==
PROVIDERS: PCP Physician Assistant; Visit Provider Physician Assistant
DX: M25.50 Pain in unspecified joint (principal); R63.5 Abnormal weight gain; Z80.8 Family history of malignant neoplasm of other organs or systems; M25.561 Pain in right knee; M25.361 Other instability, right knee
CPT/HCPCS: 36415; 72081; 73564; 80053; 80061; 84436; 84439; 84443; 84445; 84480; 85025; 85613; 85651; 86140; 86200; 86225; 86235; 86376; 86431; 86618

== ENCOUNTER 2020-07-11 09:38 | Outpatient (RCR) | payer BC, OTHER, SELFPAY ==
--- NOTE | 2020-07-11 10:24 | HMH.PTOPEV ---
PT Outpatient Evaluation Rehab PT Outpatient Evaluation Start: 07/11/20 10:11 Freq: Status: Active Protocol: Document 07/11/20 10:11 ANAYELI (Rec: 07/11/20 10:23 ANAYELI [id number]) Electronically Signed By Dorian Elizabeth, PT 07/11/20 10:11 Outpatient Therapy Subjective History Subjective History Pt reports insidious onset R knee pain beginning in April with intermittent 'popping' . Pt reports s/s have progressed w/R knee buckling, locking, and severe constant pain-medial>lateral, and in a mostly anterior aspect. Pt reports MRI scheduled for next week. Pt reports recent Xray of R knee was negative. Chief Complaint Pain,Stiff,Clicks,Swelling, Catches/Locks,Gives out/ Unstable,Weakness Symptom Type Ache,Sharp,Dull Symptoms Relieved By Nothing Symptoms Aggravated By Standing,Bending/Stooping, Twisting,Walking Prior Functional Limitations Housework,Standing,Walking, Stairs Current Functional Limitations Housework,Standing,Walking, Stairs Symptom Description Constant and Continuous Level of pain today (0-10) 10 Pain scale - at its best (0-10) 10 Pain scale - at its worst (0-10) 10 Hip/Knee Eval Gait Observation General Gait Pattern Observation Antalgic Gait Palpation Tenderness right Knee Palpation Finding Tenderness Knee Palpation Overall Comment 3-4/4 anterio-medial and lateral jt line MMT Hip Flexion Strength Grade 4- Good- Hip Abduction Strength Grade 4- Good- Hip Adduction Strength Grade 3+ Fair+ Hip Extension Strength Grade 3+ Fair+ Knee Extension Strength Grade 3- Fair- Knee Flexion Strength Grade 3- Fair- ROM Knee Flexion Active Range of Motion ( 0-45 degrees) Knee ROM Limitations Soft Tissue Tightness,Pain Effusion joint effusion knee exam standard right Mid - Patellar Circumerential Measure ( 41.5 cm) Special Tests Knee Varus Stress Test Positive Right Knee [place] Test Positive Right Patella Apprehension Test Positive Right Outpatient Therapy Assessment Impairments Problems/Impairmments Palpation Tenderness,Impaired Range of Motion,Impaired Strength,Impaired Gait Pattern ,Impaired Wa
== END 2020-07-11 09:40 | disposition home or self-care (01) ==
LOC: PT 09:38
PROVIDERS: PCP Physician Assistant; Visit Provider Physician Assistant
DX: M25.561 Pain in right knee (principal)
CPT/HCPCS: 97163

== ENCOUNTER → 2020-07-11 10:09 | Outpatient (CLI) | payer BC, OTHER, SELFPAY ==
--- NOTE | 2020-07-11 10:09 | US_ITS ---
PROCEDURE: US THYROID CLINICAL INDICATION: f/h thyroid cancer COMPARISON: No exams were available for comparison FINDINGS: The right lobe is 4.4 x 1.1 x 1.6 cm. Left lobe is 4.3 x 1.1 x 1.5 cm. There is homogeneous echogenicity. No mass or other significant anomalies apparent. IMPRESSION: Unremarkable thyroid ultrasound Dictated by: Robert Iyer MD 07/11/2020 15:31 Robert Iyer MD in [place] 07/11/2020 15:31
== END ==
PROVIDERS: PCP Physician Assistant; Visit Provider Physician Assistant
DX: R63.5 Abnormal weight gain (principal); M25.50 Pain in unspecified joint; Z80.8 Family history of malignant neoplasm of other organs or systems
CPT/HCPCS: 76536

== ENCOUNTER → 2020-07-20 15:49 | Outpatient (CLI) | payer BC, OTHER, SELFPAY ==
--- NOTE | 2020-07-20 15:50 | MR_ITS ---
PROCEDURE INFORMATION: Exam: MR Right Lower Extremity Joint Without Contrast, Knee Exam date and time: 07/20/2020 3:50 PM Age: 24 years old Clinical indication: Right; Patient HX: PT C/O anterior medial RT lnee pain with no known injury or trauma. Prior RT knee xray done 07/02/20; Additional info: Right knee pain and instability TECHNIQUE: Imaging protocol: MR of the Right lower extremity joint without contrast. Exam focused on the knee. COMPARISON: CR XR KNEE RT 4V 07/02/2020 11:56 AM FINDINGS: Bones and cartilage: There is a minimal focus of marrow edema periphery of the medial tibial plateau may be limited bone bruising. No fracture. Joint spaces: No joint effusion. Medial meniscus: No internal derangement. Lateral meniscus: Unremarkable. No tear. Anterior cruciate ligament: Unremarkable. No tear. Posterior cruciate ligament: Unremarkable. No tear. Medial capsule and supporting structures: Unremarkable. No tear. Lateral capsule and supporting structures: Unremarkable. No tear. Extensor mechanism of knee: Unremarkable. No tear. Muscles: Unremarkable. Soft tissues: Unremarkable. IMPRESSION: 1. There is a minimal focus of marrow edema periphery of the medial tibial plateau which may be limited bone bruising. No fracture. 2. No internal derangement.
== END ==
PROVIDERS: PCP Physician Assistant; Visit Provider Physician Assistant
DX: M25.561 Pain in right knee (principal); M25.361 Other instability, right knee
CPT/HCPCS: 73721

== ENCOUNTER → 2020-08-06 11:36 | Outpatient (CLI) | payer BC, OTHER, SELFPAY | PROVIDERS: PCP Physician Assistant; Visit Provider Physician Assistant | DX: Z20.822 Contact with and (suspected) exposure to COVID-19 (principal) | CPT/HCPCS: U0003 ==

== ENCOUNTER 2020-12-12 10:00 | Outpatient (RCR) | payer BC, OTHER, SELFPAY ==
--- NOTE | 2020-11-15 12:07 | HMH.OTOPEV ---
OT Inpatient Evaluation Rehab OT Outpatient Eval Start: 11/15/20 11:43 Freq: Status: Active Protocol: Document 11/15/20 11:43 BONNIE (Rec: 11/15/20 12:05 BONNIE [id number]) Electronically Signed By Héctor Burger OT 11/15/20 11:43 Outpatient Therapy Subjective History Subjective History Pt is a 25 year old female who reports to therapy for initial evaluation to left shoulder. Pt was seen for therapy at left shoulder a while ago, but has continued to start having more pain. Pt originally injured shoulder 4 years ago when she fell off skateboard and landed on left shoulder. She did not have a MRI at this time. Pt reports she feels her shoulder is going to dislocate in certain postions (external rotation at 90 degrees of abduction). Pt also has constant pain limiting her ability to engage in activities of daily living. Pt does demonstrate with decreased AROM and strength at left shoulder. Pt will continue to be seen in order to address all left shoulder deficits. Chief Complaint Pain,Stiff,Weakness Symptom Type Ache,Throb,Sharp,Dull Symptoms Relieved By Nothing Symptoms Aggravated By Physical Activity,Lifting Prior Functional Limitations None Current Functional Limitations Reaching,Lifting,Housework, Dressing,Sleeping,Recreation Activity Symptom Description Constant but Variable Level of pain today (0-10) 5 Pain scale - at its best (0-10) 5 Pain scale - at its worst (0-10) 10 Shoulder/Elbow Eval Shoulder Objective Measurements Shoulder ROM Left Shoulder Abduction Active Range of 80 degrees Motion (degrees) Shoulder Flexion Active Range of Motion 110 degrees (degrees) Query Text: Shoulder External Rotation Active Range 40 degrees of Motion (degrees) Shoulder Internal Rotation Active Range 25 degrees of Motion (degrees) Shoulder MMT Shoulder Abduction Strength Grade 3- Fair- Shoulder Extension Strength Grade 3- Fair- Dora
== END 2020-12-12 10:05 | disposition home or self-care (01) ==
LOC: OT 10:00
PROVIDERS: Visit Provider Physician Assistant
DX: M25.512 Pain in left shoulder (principal)
CPT/HCPCS: 97014; 97035; 97110; 97166; G0283

== ENCOUNTER 2021-02-19 14:40 | Outpatient (RCR) | payer BC, OTHER, SELFPAY ==
--- NOTE | 2021-02-19 15:45 | HMH.PTOPEV ---
PT Outpatient Evaluation Rehab PT Outpatient Evaluation Start: 02/19/21 14:48 Freq: Status: Active Protocol: Document 02/19/21 15:18 NICOLEVIVEK (Rec: 02/19/21 15:45 NICOLEVIVEK [id number]) Electronically Signed By Hermilo Fitch PT 02/19/21 15:18 Outpatient Therapy Subjective History Subjective History This is the initial Physical Therapy evaluation for Jax Adair. Pt is a 25 y/o male referred to PT for c/o LBP and RLE pain. Pt reports 2-3 years ago he was at work and 'bent over and reached over a box Pt reports he felt a pop in his R side low back and pain in RLE. Pt reports he has had continued pain in low back and RLE since this time. Chief Complaint Pain,Stiff Symptom Type Ache,Throb,Sharp,Dull,Burning, Numbness,Tingling Symptoms Relieved By Heat Level of pain today (0-10) 7 Pain scale - at its best (0-10) 6 Pain scale - at its worst (0-10) 10 Lumbopelvic Eval Posture Lumbar Spine Posture Standing Position Neutral Assistive device Assistive Devices None / NA Palapation tenderness bilateral lumbar spinal tenderness Yes paraspinal tenderness Yes buttock tenderness Yes: R side Lumbar/Sacral Palpation Findings Tenderness,Muscle Guarding Accessory Movement L2 bilateral L3 bilateral L4 bilateral L5 bilateral S1 bilateral Range of Motion Lumbar Spine Active Flexion Range of 70 Motion (degrees) Lumbar Spine Active Extension Range of 30 Motion (degrees) Left Lumbar Spine Lateral Flexion Active 35 Range of Motion (degrees) Right Lumbar Spine Lateral Flexion 30 Active Range of Motion (degrees) Lumbar Spine ROM Limitations Pain Special Tests Lumbar Spine Screen Positive Forward Bending Test- Standing Positive Right Forward Bending Test- Sitting Positive Right Sciatic Nerve Tension Test Positive Right Unilateral Straight Leg Raise (Lasegue) Positive Right Test Sacroiliac Joint Compression Test Positive Right Leti's Sign Test Negative Left,Negative Right Lumbar [place] Distraction Test/Manual Negative Traction Outpatient Therapy Assessment Impairments Problems/Impairmments Palpation Tenderness,Impaired
== END 2021-02-19 14:45 | disposition home or self-care (01) ==
LOC: PT 14:40
PROVIDERS: PCP Physician Assistant; Visit Provider Nurse Practitioner Family
DX: M54.50 Low back pain, unspecified (principal)
CPT/HCPCS: 97163

== ENCOUNTER → 2021-03-26 16:00 | Outpatient (CLI) | payer BC, OTHER, SELFPAY ==
[2021-03-26 17:34] LABS: Basophils # 0.2 K/mm3 (0-0.2); Basophils % 2.1 % (0.1-2.0); Eosinophils # 0.2 K/mm3 (0.0-0.4); Eosinophils % 2.4 % (0.1-12.0); Hematocrit 52.8 % (37.0-47.0); Hemoglobin 17.4 g/dL (12.2-16.2); Lymphocytes # 2.4 K/mm3 (0.7-4.5); Lymphocytes % 34.4 % (10-50); Mean Corpuscular Hemoglobin 28.8 pg (27.0-31.2); Mean Corpuscular Volume 87.3 fl (81-99); Mean Platelet Volume 9.7 fl (7.4-10.4); Monocytes # 0.4 K/mm3 (0.1-1.0); Monocytes % 5.3 % (1.7-9.3); Neutrophils # 3.9 K/mm3 (1.8-7.8); Neutrophils % 55.8 % (37.0-80.0); Platelet Count 223 K/mm3 (142-424); Red Blood Count 6.05 M/mm3 (4.20-5.40); Red Cell Distribution Width 14.2 % (11.5-17.5); White Blood Count 7.1 K/mm3 (4.8-10.8)
== END ==
PROVIDERS: Visit Provider Physician Assistant
DX: Z78.9 Other specified health status (principal)
CPT/HCPCS: 85025

== ENCOUNTER → 2021-03-30 20:58 | Outpatient (CLI) | payer BC, OTHER, SELFPAY | PROVIDERS: PCP Physician Assistant; Visit Provider Nurse Practitioner Family | DX: Z20.822 Contact with and (suspected) exposure to COVID-19 (principal) | CPT/HCPCS: C9803; U0003; U0005 ==

== ENCOUNTER → 2021-05-07 09:36 | Outpatient (CLI) | payer BC, OTHER, SELFPAY ==
[2021-05-07 10:45] VITALS: PULSE 86; PULSE 89
== END ==
PROVIDERS: PCP Physician Assistant; Visit Provider Physician Assistant
DX: J44.9 Chronic obstructive pulmonary disease, unspecified (principal)
CPT/HCPCS: 94060; 94618; 94640; 94727; 94729

== ENCOUNTER 2021-05-24 09:41 | Emergency (ER) | payer BC, OTHER, SELFPAY ==
[2021-05-24 11:00] VITALS: BP 124/86; PULSE 101; RESP 20; TEMP 37.7; O2SAT 98; BMI 32.8
--- NOTE | 2021-05-24 11:23 | HMH.EDUTC ---
[facility] [place] Clinical Impression: UTI (urinary tract infection) Qualifiers: Urinary tract infection type: site unspecified Hematuria presence: with hematuria Qualified Code(s): N39.0 - Urinary tract infection, site not specified Disposition: Home, Self-Care Condition on Discharge: Good Instructions: Urinary Tract Infection, DI for Urinary Tract Infection (UTI) Additional Instructions: *Increase fluids. Water not Soda or Tea *Start antibiotic immediately and be sure to take as ordered for the FULL length of time although you should start to see improvement over the next 48 hours *Pyridium as needed Remember this medication will turn your urine Bethany. This is normal but it will stain what ever it gets on *You should not use Pyridium for more than 48 hours. If so , follow up with your primary physician to review urine culture and ensure that antibiotic is adequate for infection *Be SURE to follow up anytime for new or worsening symptoms with your family doctor. AND in 48 hours for urine culture results with your family doctor, if you do not have a doctor then you may call back to the [facility] for urine culture results and further treatment. We do recommend that you choose and establish care with a Primary Care Physician. AND follow up with them in 10-14 days to repeat UA to ensure infection is resolved and blood no longer present *Be sure to let your PCP know that we sent urine cultures from the [facility] so they can follow up to ensure that you area the on the correct antibiotic Call your doctor office and make appointment for 48 hours (2 days from today) to follow up and get the results of your urine culture and further treatment Follow up with Family Doctor if no improvement Prescriptions: Ciprofloxacin HCl [Cipro 500mg Tab] 500 mg PO BID 7 Days #14 tab Transmission Status: Received by [facility] Phenazopyridine HCl [Pyridium 200mg Tablet] 200 pow PO TID #6 tab Transmission Status: Received by [facility] Referrals: Lenka Dominguez PA [Primary Care Provider] - As needed Time of Disposition: 11:51 Medical Decision Making - Steve Inquiry Pt receiving controlled substance: No Steve was queried for this patient: No Vital Signs: 05/24/21 11:00 05/24/21 11:47 Temperature 99.8 F H 99.8 F H Temperature Source Oral Pulse Rate 101 H Pulse Rate [Left Brachial] 101 H Respiratory Rate 20 20 Blood Pressure 124/86 Blood Pressure [Left Arm] 124/86 Blood Pressure Mean [Left Arm] 98 Blood Pressure Source [Left Arm] Automatic Cuff Blood Pressure Position [Left Arm] Sitting 02 Sat by Pulse Oximetry 98 Oxygen Delivery Method Room Air - Lab Data Lab results reviewed: Yes: I reviewed the patient's lab results. Lab Results 05/24/21 11:00: Group A Strep Rapid Negative 05/24/21 11:00: Urine HCG, Qual Negative 05/24/21 11:13: Influenza Type A Ag Negative, Influenza Type B Ag Negative 05/24/21 11:13: Urine Color Yellow, Urine Appearance Clear, Urine pH 5.0, Ur Specific [place] 1.030, Urine Protein 1+, Urine Glucose (UA) Negative, Urine Ketones Negative, Urine Blood 3+, Urine Nitrate Positive A, Urine Bilirubin Negative, Urine Urobilinogen 0.2, Ur Leukocyte Esterase Trace Orders (Tests/Meds): ED MEDICATIONS Discontinued Medications Generic Name Dose Route Start Last Admin Trade Name Freq PRN Reason Stop Dose Admin Ceftriaxone Sodium 1 gm 05/24/21 11:28 05/24/21 11:47 Ceftriaxone 1gm Vial IM 05/24/21 11:29 1 gm ONCE ONE Administration Lidocaine HCl 0 ml 05/24/21 11:28 05/24/21 11:47 Lidocaine 1% 5ml Pf Vial IM 05/24/21 11:29 2 ml ONCE ONE Administration Methylprednisolone Sodium Succinate 125 mg 05/24/21 11:34 05/24/21 11:43 Methylprednisolone Sod Succ 125mg Vial IM 05/24/21 11:35 Not Given ONCE ONE ORDERS Category Date Time Status Covid-19 Nasal PCR ([facility]) Routine Lab 05/24/21 11:00 Received Strep Screen Confirmation Stat Micro 05/24/21 11:00 Receiv
[2021-05-24 11:30] LABS: Apearance,Urine Clear (Clear); Color,Urine Yellow (Yellow); Glucose,Urine (UA) Negative (Negative); Ketones,Urine Negative (Negative); Protein,Urine 1+ (Negative)
[2021-05-24 11:31] LABS: Bilirubin,Urine Negative (Negative); Blood, Urine 3+ (Negative); UTC Influenza A Antigen Negative (Negative); UTC Leukocyte Esterase,Urine Trace (Negative); UTC Nitrate,Urine Positive (Negative); Urobilinogen,Urine 0.2 EU/dl (0.2)
[2021-05-24 11:32] LABS: UTC Influenza B Antigen Negative (Negative)
[2021-05-24 11:37] LABS: Strep Scrn Group A (Rapid) Negative (Negative); Urine Pregnancy, HCG Qual. Negative (Negative)
[2021-05-24 11:47] VITALS: BP 124/86; PULSE 101; RESP 20; TEMP 37.7; O2SAT 98
== END 2021-05-24 12:08 | disposition home or self-care (01) ==
PROVIDERS: Emergency Provider Nurse Practitioner; PCP Physician Assistant
DX: N30.01 Acute cystitis with hematuria (principal); I10 Essential (primary) hypertension; F41.8 Other specified anxiety disorders
CPT/HCPCS: 81003; 81025; 87086; 87088; 87186; 87430; 87804; 96372; 99213; C9803; G0463; J0696; U0003; U0005

== ENCOUNTER → 2021-06-12 10:16 | Outpatient (CLI) | payer BC, OTHER, SELFPAY ==
[2021-06-12 14:20] LABS: Basophils # 0.1 K/mm3 (0-0.2); Basophils % 2.5 % (0.1-2.0); Eosinophils # 0.3 K/mm3 (0.0-0.4); Eosinophils % 6.6 % (0.1-12.0); Hematocrit 50.9 % (37.0-47.0); Hemoglobin 16.4 g/dL (12.2-16.2); Lymphocytes # 1.2 K/mm3 (0.7-4.5); Lymphocytes % 26.7 % (10-50); Mean Corpuscular HGB Conc 32.1 g/dL (31.8-35.4); Mean Corpuscular Hemoglobin 28.3 pg (27.0-31.2); Mean Corpuscular Volume 88.2 fl (81-99); Mean Platelet Volume 9.3 fl (7.4-10.4); Monocytes # 0.3 K/mm3 (0.1-1.0); Monocytes % 5.8 % (1.7-9.3); Neutrophils # 2.7 K/mm3 (1.8-7.8); Neutrophils % 58.5 % (37.0-80.0); Platelet Count 187 K/mm3 (142-424); Red Blood Count 5.77 M/mm3 (4.20-5.40); Red Cell Distribution Width 14.1 % (11.5-17.5); White Blood Count 4.5 K/mm3 (4.8-10.8)
[2021-06-12 14:42] LABS: Alanine Aminotransferase 44 U/L (12-78); Albumin Level 4.2 g/dl (3.5-5.0); Albumin/Globulin Ratio 1.8 (1.1-1.8); Alkaline Phosphatase 53 U/L (38-126); Anion Gap 9.5 mEq/L (5-15); Aspartate Amino Transferase 41 U/L (14-36); Bilirubin,Total 0.5 mg/dl (0.2-1.3); Blood Urea Nitrogen 15 mg/dl (7-17); Calcium 8.8 mg/dl (8.4-10.2); Carbon Dioxide 27 mmol/L (22.0-30.0); Chloride 106 mmol/L (98-107); Chol/HDL Ratio 3.5 (1-3.5); Cholesterol 170 mg/dl (140-200); Estimated Glomerular Filt Rate 153 ml/min (>60); GFR (African American) 185 ML/MIN (>60); Globulin 2.4 g/dL (1.3-3.2); Glucose 96 mg/dl (74-100); HDL Cholesterol 49 mg/dl (40-60); Magnesium 1.7 mg/dl (1.6-2.3); Potassium 4.5 mmoL/L (3.5-5.1); Sodium 138 mmol/L (136-145); Total Protein,Serum 6.6 g/dl (6.3-8.2); Triglycerides 115 mg/dl (30-150); VLDL Cholesterol 23 mg/dL (0-40)
[2021-06-12 14:55] LABS: Direct LDL Cholesterol 86.26 mg/dL (100-129)
[2021-06-12 14:59] LABS: 25-OH Vitamin D, Total 23.7 ng/mL (30-100)
[2021-06-12 15:13] LABS: Thyroid Stimulating Hormone 1.81 uIU/mL (0.465-4.68)
[2021-06-12 15:33] LABS: Vitamin B12 324 pg/mL (239-931)
[2021-06-12 15:43] LABS: Iron 56 ug/dL (37-170)
[2021-06-12 15:52] LABS: Total Iron Binding Capacity 451 ug/dL (265-497)
[2021-06-14 08:42] LABS: Testosterone,Total 196 ng/dL (13-71)
== END ==
PROVIDERS: PCP Emergency Medicine; Visit Provider Physician Assistant
DX: G62.9 Polyneuropathy, unspecified (principal); F64.0 Transsexualism; E55.9 Vitamin D deficiency, unspecified; Z79.899 Other long term (current) drug therapy
CPT/HCPCS: 80053; 80061; 82306; 82607; 82728; 83540; 83550; 83735; 84403; 84443; 85025

== ENCOUNTER → 2021-07-09 10:15 | Outpatient (CLI) | payer BC, OTHER, SELFPAY ==
[2021-07-08 18:20] LABS: Chloride 107 mmol/L (98-107)
[2021-07-08 18:21] LABS: Potassium 4.2 mmoL/L (3.5-5.1); Sodium 138 mmol/L (136-145)
[2021-07-08 18:22] LABS: Basophils # 0.1 K/mm3 (0-0.2); Eosinophils # 0.4 K/mm3 (0.0-0.4); Eosinophils % 6.1 % (0.1-12.0); Hematocrit 48.5 % (37.0-47.0); Hemoglobin 16.7 g/dL (12.2-16.2); Lymphocytes % 32.7 % (10-50); Mean Corpuscular HGB Conc 34.4 g/dL (31.8-35.4); Mean Corpuscular Hemoglobin 29.1 pg (27.0-31.2); Mean Corpuscular Volume 84.5 fl (81-99); Mean Platelet Volume 9.7 fl (7.4-10.4); Monocytes # 0.3 K/mm3 (0.1-1.0); Monocytes % 4.1 % (1.7-9.3); Neutrophils # 3.4 K/mm3 (1.8-7.8); Neutrophils % 56.2 % (37.0-80.0); Platelet Count 186 K/mm3 (142-424); Red Blood Count 5.74 M/mm3 (4.20-5.40); Red Cell Distribution Width 13.9 % (11.5-17.5)
[2021-07-08 18:23] LABS: Alanine Aminotransferase 16 U/L (12-78); Albumin Level 4.2 g/dl (3.5-5.0); Albumin/Globulin Ratio 1.7 (1.1-1.8); Alkaline Phosphatase 61 U/L (38-126); Anion Gap 11.2 mEq/L (5-15); Aspartate Amino Transferase 27 U/L (14-36); Bilirubin,Total 0.5 mg/dl (0.2-1.3); Blood Urea Nitrogen 16 mg/dl (7-17); Carbon Dioxide 24 mmol/L (22.0-30.0); Estimated Glomerular Filt Rate 124 ml/min (>60); GFR (African American) 150 ML/MIN (>60); Globulin 2.5 g/dL (1.3-3.2); Total Protein,Serum 6.7 g/dl (6.3-8.2)
[2021-07-08 18:24] LABS: Calcium 9.3 mg/dl (8.4-10.2); Glucose 101 mg/dl (74-100)
[2021-07-08 18:29] LABS: C-Reactive Protein 3.4 mg/L (0-4)
[2021-07-08 19:10] LABS: Erythrocyte Sedimentation Rate 3 mm/hr (0-20)
[2021-07-10 08:19] LABS: RA Latex Turbid. <10.0 IU/mL (<14.0)
[2021-07-10 15:13] LABS: Anti-Centromere B Antibodies <0.2 AI (0.0-0.9); Anti-DNA (DS) Ab Qn <1 IU/mL (0-9); Anti-Jo-1 <0.2 AI (0.0-0.9); Anti-Smith Antibody <0.2 AI (0.0-0.9); Antichromatin Antibodies <0.2 AI (0.0-0.9); Antiscleroderma-70 Antibodies <0.2 AI (0.0-0.9); RNP Antibodies <0.2 AI (0.0-0.9); Sjogren's Anti-SS-A <0.2 AI (0.0-0.9); Sjogren's Anti-SS-B <0.2 AI (0.0-0.9)
[2021-07-11 01:16] LABS: Anti-Cyclic Citrullinated Pept 4 units (0-19)
== END ==
PROVIDERS: PCP Physician Assistant; Visit Provider Physician Assistant
DX: M25.50 Pain in unspecified joint (principal)
CPT/HCPCS: 80053; 85025; 85651; 86140; 86200; 86225; 86235; 86431

== ENCOUNTER → 2021-10-08 06:49 | Outpatient (CLI) | payer BC, OTHER, SELFPAY ==
[2021-10-08 18:50] LABS: Basophils # 0.1 K/mm3 (0-0.2); Eosinophils # 0.2 K/mm3 (0.0-0.4); Eosinophils % 2.6 % (0.1-12.0); Hematocrit 54.8 % (37.0-47.0); Hemoglobin 17.4 g/dL (12.2-16.2); Lymphocytes # 2.1 K/mm3 (0.7-4.5); Lymphocytes % 29.3 % (10-50); Mean Corpuscular HGB Conc 31.7 g/dL (31.8-35.4); Mean Corpuscular Hemoglobin 27.4 pg (27.0-31.2); Mean Corpuscular Volume 86.3 fl (81-99); Mean Platelet Volume 9.5 fl (7.4-10.4); Monocytes # 0.3 K/mm3 (0.1-1.0); Monocytes % 4.1 % (1.7-9.3); Neutrophils # 4.5 K/mm3 (1.8-7.8); Neutrophils % 63.2 % (37.0-80.0); Platelet Count 212 K/mm3 (142-424); Red Blood Count 6.35 M/mm3 (4.20-5.40); Red Cell Distribution Width 14.4 % (11.5-17.5); White Blood Count 7.1 K/mm3 (4.8-10.8)
[2021-10-08 19:11] LABS: Alanine Aminotransferase 17 U/L (12-78); Albumin Level 4.5 g/dl (3.5-5.0); Albumin/Globulin Ratio 1.6 (1.1-1.8); Alkaline Phosphatase 93 U/L (38-126); Anion Gap 12.8 mEq/L (5-15); Aspartate Amino Transferase 28 U/L (14-36); Bilirubin,Total 0.7 mg/dl (0.2-1.3); Blood Urea Nitrogen 11 mg/dl (7-17); Calcium 9.5 mg/dl (8.4-10.2); Carbon Dioxide 28 mmol/L (22.0-30.0); Chloride 103 mmol/L (98-107); Cholesterol 206 mg/dl (140-200); Estimated Glomerular Filt Rate 103 ml/min (>60); GFR (African American) 124 ML/MIN (>60); Globulin 2.9 g/dL (1.3-3.2); Glucose 90 mg/dl (74-100); HDL Cholesterol 51 mg/dl (40-60); Potassium 4.8 mmoL/L (3.5-5.1); Sodium 139 mmol/L (136-145); Total Protein,Serum 7.4 g/dl (6.3-8.2); Triglycerides 123 mg/dl (30-150); VLDL Cholesterol 25 mg/dL (0-40)
[2021-10-08 19:28] LABS: 25-OH Vitamin D, Total 35.4 ng/mL (30-100)
[2021-10-08 19:41] LABS: Thyroid Stimulating Hormone 0.98 uIU/mL (0.465-4.68)
[2021-10-10 08:50] LABS: Direct LDL Cholesterol 120 mg/dL (100-129)
== END ==
PROVIDERS: PCP Physician Assistant; Visit Provider Physician Assistant
DX: M25.50 Pain in unspecified joint (principal); M24.9 Joint derangement, unspecified; I10 Essential (primary) hypertension; E66.9 Obesity, unspecified; Z68.32 Body mass index [BMI] 32.0-32.9, adult
CPT/HCPCS: 80053; 80061; 82306; 84443; 85025

== ENCOUNTER → 2022-03-05 13:58 | Outpatient (POV) | payer BC, OTHER, SELFPAY | PROVIDERS: Visit Provider Specialist/Technologist | DX: Z00.00 Encounter for general adult medical examination without abnormal findings (principal) ==

== ENCOUNTER → 2022-10-30 12:00 | Outpatient (CLI) | payer OTHER, SELFPAY ==
[2022-10-30 18:51] LABS: Basophils % 0.4 % (0.1-2.0); Eosinophils # 0.2 K/mm3 (0.0-0.4); Eosinophils % 2.6 % (0.1-12.0); Hematocrit 53.2 % (37.0-47.0); Hemoglobin 17.5 g/dL (12.2-16.2); Lymphocytes # 2.3 K/mm3 (0.7-4.5); Lymphocytes % 28.7 % (10-50); Mean Corpuscular HGB Conc 32.9 g/dL (31.8-35.4); Mean Corpuscular Volume 84.9 fl (81-99); Mean Platelet Volume 9.4 fl (7.4-10.4); Monocytes # 0.4 K/mm3 (0.1-1.0); Monocytes % 4.5 % (1.7-9.3); Neutrophils % 63.8 % (37.0-80.0); Platelet Count 192 K/mm3 (142-424); Red Blood Count 6.26 M/mm3 (4.20-5.40); Red Cell Distribution Width 13.8 % (11.5-17.5); White Blood Count 7.9 K/mm3 (4.8-10.8)
[2022-10-30 19:00] LABS: Alanine Aminotransferase 15 U/L (12-78); Albumin Level 4.6 g/dl (3.5-5.0); Albumin/Globulin Ratio 1.6 (1.1-1.8); Alkaline Phosphatase 70 U/L (38-126); Aspartate Amino Transferase 23 U/L (14-36); Bilirubin,Total 0.9 mg/dl (0.2-1.3); Blood Urea Nitrogen 14 mg/dl (7-17); Calcium 9.5 mg/dl (8.4-10.2); Carbon Dioxide 24 mmol/L (22.0-30.0); Chloride 105 mmol/L (98-107); Chol/HDL Ratio 4.4 (1-3.5); Cholesterol 160 mg/dl (140-200); Estimated Glomerular Filt Rate 87 ml/min (>60); GFR (African American) 106 ML/MIN (>60); Globulin 2.8 g/dL (1.3-3.2); Glucose 94 mg/dl (74-100); HDL Cholesterol 36 mg/dl (40-60); Sodium 141 mmol/L (136-145); Total Protein,Serum 7.4 g/dl (6.3-8.2); Triglycerides 136 mg/dl (30-150); VLDL Cholesterol 27 mg/dL (0-40)
[2022-10-30 19:11] LABS: Direct LDL Cholesterol 86.26 mg/dL (100-129)
[2022-10-30 19:18] LABS: 25-OH Vitamin D, Total 23.9 ng/mL (30-100)
[2022-10-30 19:31] LABS: Thyroid Stimulating Hormone 1.62 uIU/mL (0.465-4.68)
[2022-11-01 08:24] LABS: Testosterone,Total 286 ng/dL (13-71)
== END ==
PROVIDERS: PCP Physician Assistant; Visit Provider Physician Assistant
DX: F64.0 Transsexualism (principal); E55.9 Vitamin D deficiency, unspecified; E28.1 Androgen excess; Z79.899 Other long term (current) drug therapy
CPT/HCPCS: 80053; 80061; 82306; 84403; 84443; 85025

== ENCOUNTER 2023-01-29 08:14 | Emergency (ER) | payer OTHER, SELFPAY ==
[2023-01-29 08:25] VITALS: BP 139/82; PULSE 71; RESP 18; TEMP 36.7; O2SAT 96; BMI 27.8
--- NOTE | 2023-01-29 08:41 | EXP.UTC ---
Discharge Plan Disposition Patient Disposition: Home, Self-Care Condition: Good Prescriptions Prescriptions: New triamcinolone acetonide 0.1 % cream 1 applic topical BID PRN (Reason: itching) Qty: 30 0RF No Action (DME) BD Luer-Inna Syringe 3 mL 23 x 1 syringe See Rx Instructions .ROUTE .MEDSUPPLY Qty: 1 Rx Instructions: As directed cetirizine [All Day Allergy (cetirizine)] 10 mg tablet 10 mg PO DAILY Qty: 30 2RF paroxetine HCl [Paxil] 20 mg tablet 20 mg PO DAILY Qty: 30 1RF epinephrine [EpiPen 2-Faustino] 0.3 mg/0.3 mL auto-injector 0.3 mg IM Q15-20M PRN (Reason: anaphylaxis) Qty: 2 0RF (DME) BD Luer-Inna Syringe 3 mL 23 x 1 syringe See Rx Instructions .ROUTE .COMPLEX Qty: 2 5RF Dose Instruction: DIRECTED Rx Instructions: DIRECTED testosterone cypionate 200 mg/mL oil 100 mg IM Q2W Qty: 1 5RF cholecalciferol (vitamin D3) 50 mcg (2,000 unit) capsule 50 mcg PO DAILY Qty: 90 3RF ergocalciferol (vitamin D2) 1,250 mcg (50,000 unit) capsule 1,250 mcg PO WEEKLY Qty: 14 3RF aspirin 81 MG tablet,chewable 81 mg PO DAILY Referrals Follow up/Referrals: Lenka Dominguez PA [Primary Care Provider] - See instructions Activity Restrictions/Add. Instructions Additional Instructions/Restrictions: Use the topical medications as directed. Follow up with your regular doctor. GO TO THE ER FOR ANY WORSENING SYMPTOMS Clinical Impressions Clinical Impression: Pityriasis rosea Instructions Patient Instructions: Pityriasis Rosea, Triamcinolone Topical, DI for Pityriasis Rosea Discharge ED Provider: Yousuf Hill [facility] General Stated complaint: Rash on back Mode of Arrival: Ambulatory Source of Information: Patient Limitations: No Limitations Time Seen by Provider: 01/29/23 08:41 Description of Symptoms (Recalled from Triage Doc. by RN): PT states that he thinks there is a ring worm on his back left shoulder HEENT Symptoms (Recalled from RN notes): No Resp Symptoms (Recalled from RN notes): No Skin Symptoms (Recalled from RN notes): Yes MS Symptoms (Recalled from RN notes): No Functional Status (Recalled from RN notes): n/a History of Present Illness Provider Complaint: She states that she has had a very itchy rash on the back of her left shoulder for the past 2 days. She denies any other lesions or symptoms. She does not feel bad. She denies any fever/chills. She denies any known exposure to any allergens. Related Data Home Medications Medication Instructions Recorded Confirmed aspirin 81 mg chewable tablet 81 mg PO DAILY HEART. 05/24/21 01/29/23 syringe with needle 3 mL 23 x 1 #1 ea 08/12/21 11/26/22 (BD Luer-Inna Syringe) Previous Rx's Medication Instructions Recorded cetirizine 10 mg tablet (All Day 10 mg PO DAILY #30 tabs 11/13/21 Allergy (cetirizine)) epinephrine 0.3 mg/0.3 mL 0.3 mg (0.3 mL) IM Q15-20M PRN 04/08/22 injection, auto-injector (EpiPen anaphylaxis #2 ea 2-Faustino) syringe with needle 3 mL 23 x 1 #2 ea 08/15/22 (BD Luer-Inna Syringe) testosterone cypionate 200 mg/mL 100 mg (0.5 mL) IM Q2W #1 mL 10/22/22 intramuscular oil cholecalciferol (vitamin D3) 50 50 mcg PO DAILY #90 caps 11/05/22 mcg (2,000 unit) capsule ergocalciferol (vitamin D2) 1,250 1,250 mcg PO WEEKLY #14 caps 11/05/22 mcg (50,000 unit) capsule paroxetine HCl 20 mg tablet (Paxil) 20 mg PO DAILY #30 tabs 11/26/22 triamcinolone acetonide 0.1 % 1 applic topical BID PRN itching 01/29/23 topical cream #30 grams Allergies Allergy/AdvReac Type Severity Reaction Status Date / Time Fish Containing Products Allergy Intermediate upset Verified 01/29/23 08:40 stomach Milk Containing Products Allergy Mild Verified 01/29/23 08:40 (Dairy) [Milk Containing Products] peanut Allergy Mild Verified 01/29/23 08:40 cinnamon Allergy throat Verified 01/29/23 08:40 swells atomoxetine [From Strattera] AdvReac Extreme Verifi
[2023-01-29 09:12] VITALS: BP 139/82; PULSE 71; RESP 18; TEMP 36.7; O2SAT 96
== END 2023-01-29 09:12 | disposition home or self-care (01) ==
LOC: ER 08:18 → UTC 08:19
PROVIDERS: Emergency Provider Nurse Practitioner Family; PCP Physician Assistant
DX: L42 Pityriasis rosea (principal); F17.210 Nicotine dependence, cigarettes, uncomplicated
CPT/HCPCS: 99212; 99214; G0463

== ENCOUNTER 2023-04-28 18:44 | Outpatient (CLI) | payer OTHER, SELFPAY ==
[2023-04-28 18:19] LABS: Basophils % 0.2 % (0.1-2.0); Eosinophils # 0.1 K/mm3 (0.0-0.4); Eosinophils % 1.3 % (0.1-12.0); Hematocrit 51.3 % (37.0-47.0); Hemoglobin 17.4 g/dL (12.2-16.2); Lymphocytes # 1.5 K/mm3 (0.7-4.5); Lymphocytes % 19.6 % (10-50); Mean Corpuscular HGB Conc 33.9 g/dL (31.8-35.4); Mean Corpuscular Hemoglobin 29.8 pg (27.0-31.2); Mean Corpuscular Volume 87.8 fl (81-99); Monocytes # 0.3 K/mm3 (0.1-1.0); Monocytes % 4.2 % (1.7-9.3); Neutrophils # 5.5 K/mm3 (1.8-7.8); Neutrophils % 74.7 % (37.0-80.0); Platelet Count 190 K/mm3 (142-424); Red Blood Count 5.85 M/mm3 (4.20-5.40); Red Cell Distribution Width 14.1 % (11.5-17.5); White Blood Count 7.4 K/mm3 (4.8-10.8)
[2023-04-28 18:44] LABS: Alanine Aminotransferase 16 U/L (12-78); Albumin Level 4.6 g/dl (3.5-5.0); Albumin/Globulin Ratio 1.8 (1.1-1.8); Alkaline Phosphatase 80 U/L (38-126); Anion Gap 12.8 mEq/L (5-15); Aspartate Amino Transferase 21 U/L (14-36); Bilirubin,Total 1.2 mg/dl (0.2-1.3); Blood Urea Nitrogen 12 mg/dl (7-17); Calcium 9.6 mg/dl (8.4-10.2); Carbon Dioxide 23 mmol/L (22.0-30.0); Chloride 105 mmol/L (98-107); Chol/HDL Ratio 4.1 (1-3.5); Cholesterol 187 mg/dl (140-200); Estimated Glomerular Filt Rate 102 ml/min (>60); GFR (African American) 123 ML/MIN (>60); Globulin 2.6 g/dL (1.3-3.2); Glucose 105 mg/dl (74-100); HDL Cholesterol 46 mg/dl (40-60); Potassium 3.8 mmoL/L (3.5-5.1); Sodium 137 mmol/L (136-145); Total Protein,Serum 7.2 g/dl (6.3-8.2); Triglycerides 92 mg/dl (30-150); VLDL Cholesterol 18 mg/dL (0-40)
[2023-04-28 18:48] LABS: 25-OH Vitamin D, Total 23.8 ng/mL (30-100)
[2023-04-28 18:59] LABS: Direct LDL Cholesterol 101.59 mg/dL (100-129)
[2023-04-28 19:03] LABS: Hemoglobin A1C 4.6 % (4.0-6.0)
[2023-04-28 19:15] LABS: Thyroid Stimulating Hormone 1.93 uIU/mL (0.465-4.68)
[2023-04-30 09:29] LABS: Testosterone,Total 21 ng/dL (13-71)
== END 2023-04-28 23:59 ==
LOC: LAB.DROPOF 18:45
PROVIDERS: PCP Physician Assistant; Visit Provider Physician Assistant
DX: F64.0 Transsexualism (principal); R63.4 Abnormal weight loss; E55.9 Vitamin D deficiency, unspecified; Z68.25 Body mass index [BMI] 25.0-25.9, adult
CPT/HCPCS: 80053; 80061; 82306; 83036; 84403; 84443; 85025

== ENCOUNTER 2023-05-21 09:36 | Outpatient (CLI) | payer OTHER, SELFPAY ==
--- NOTE | 2023-05-21 09:37 | US_ITS ---
FINAL REPORT CLINICAL HISTORY: thyromegaly, family hx thyroid cancer, wt loss COMPARISON: 07/11/2020 FINDINGS: THYROID ULTRASOUND: The right lobe of the thyroid measures 4.75 x 2 x 1.3 cm in size. The left lobe of the thyroid measures 4.55 x 1.4 x 1.4 cm in size. The isthmus of the thyroid gland measures 2.3 mm in thickness. There is a 2 mm hypoechoic focus in the right upper lobe of the thyroid, a TI-RADS category 4 nodule. No other focal masses or nodules are identified. IMPRESSION: Single 2 mm hypoechoic focus in the right upper lobe of the thyroid, a TI-RADS category 4 nodule. Due to the small size, no follow-up is required at this time. Reviewed, Interpreted and Dictated by William Duncan MD Transcribed by Eli Dominguez Authenticated and [facility]
== END 2023-05-21 23:59 ==
LOC: RAD 09:37
PROVIDERS: PCP Physician Assistant; Visit Provider Physician Assistant
DX: E01.0 Iodine-deficiency related diffuse (endemic) goiter (principal)
CPT/HCPCS: 76536

== ENCOUNTER 2024-03-24 13:21 | Outpatient (CLI) | payer OTHER, SELFPAY ==
[2024-03-24 15:22] LABS: HIV Combo NEGATIVE (Negative)
[2024-03-24 15:31] LABS: Hepatitis C Ab Qual. W/ RFX NEGATIVE (Negative)
[2024-03-29 21:11] LABS: Testosterone, Total, LC/MS 340 ng/dL (.)
== END 2024-03-24 23:59 | disposition home or self-care (01) ==
LOC: LAB.DROPOF 13:21
PROVIDERS: PCP Internal Medicine; Visit Provider Internal Medicine
DX: Z11.59 Encounter for screening for other viral diseases (principal); F64.0 Transsexualism; Z79.899 Other long term (current) drug therapy; Z11.4 Encounter for screening for human immunodeficiency virus [HIV]
CPT/HCPCS: 84403; 86803; 87389